=== PATIENT | female | born 1990 | race Caucasian/White ===

== ENCOUNTER 2024-11-04 11:46 | Outpatient (CLI) | payer BC ==
[~2024-11-04 11:46] MED LIST: AMOX-102 PO; LIDO20SO16 PO
[2024-11-04 13:06] LABS: MEAN PLATELET VOLUME 8.6 FL (7.4-10.4); RED CELL DISTRIBUTION WIDTH 13.2 % (11.5-14.5)
[2024-11-04 14:10] LABS: LEUKOCYTE ESTERASE ,URINE NEGATIVE (Neg); NITRITES, URINE NEGATIVE (Neg); OCCULT BLOOD,URINE NEGATIVE (Neg)
[2024-11-04 14:22] LABS: UA COLLECTION TYPE NON-SPECIFIED
[2024-11-04 15:04] LABS: URINE AMPHETAMINE SCREEN NEGATIVE (Neg); URINE BARBITUATE SCREEN NEGATIVE (Neg); URINE BENZODIAZEPINES SCREEN NEGATIVE (Neg); URINE CANNABINOID SCREEN NEGATIVE (Neg); URINE COCAINE SCREEN NEGATIVE (Neg); URINE METHADONE SCREEN NEGATIVE (Neg); URINE OPIATE SCREEN NEGATIVE (Neg); URINE PHENCYCLIDINE SCREEN NEGATIVE (Neg)
[2024-11-07 05:15] LABS: HBSAG SCREEN Negative (Negative); HEPATITIS C VIRUS ANTIBODY Non Reactive (Non Reactive)
== END 2024-11-04 23:59 | disposition home or self-care (01) ==
LOC: LAB 11:46
PROVIDERS: ATTEND Specialist
DX: Z34.01 Encounter for supervision of normal first pregnancy, first trimester (principal); Z3A.00 Weeks of gestation of pregnancy not specified
CPT/HCPCS: 36415; 80305; 81003; 83036; 85025; 86762; 86780; 86803; 86885; 86900; 86901; 87088; 87340; 87389; 87491; 87522

== ENCOUNTER 2025-02-14 15:59 | Outpatient (CLI) | payer BC ==
--- NOTE | 2025-02-14 19:01 | RADIOLOGY REPORT ---
EXAM: US US OB HISTORY: anatomy scan COMPARISON: None TECHNIQUE: Transabdominal and endovaginal real time correa scale, color, and doppler evaluation. Permanent images are maintained in the patient record. FINDINGS: GA by previous US/LMP: 27 weeks, 6 days YUSUF by previous US/LMP: 05/10/25 US GESTATIONAL AGE: 28 weeks, 5 days US YUSUF: 05/04/25 ESTIMATED WEIGHT: 1262 g. 2 lb, 13 oz HEART RATE: 149 bpm BPD: 7..13 cm, 28 weeks 4 days, 63.6% HC: 26.26 cm, 28 weeks 4 days, 41.8% AC: 24.11 cm, 28 weeks 3 days, 59% FL: 5.51 cm, 29 weeks 0days, 71% HC/AC: 1.09 ANATOMY: Normal head, 4 chamber heart, face, spine, stomach, kidneys, cord insertion, bladder, extremities POSITION: Vertex PLACENTA: Anterior Amniotic fluid index measures 14.9 cm, normal Cervical length measures 4.43 cm IMPRESSION: 1. Single viable gestation with normal cardiac heart rate.
== END 2025-02-14 23:59 | disposition home or self-care (01) ==
LOC: LAB 15:59
PROVIDERS: ATTEND Specialist
DX: Z36.86 Encounter for antenatal screening for cervical length (principal); Z36.0 Encounter for antenatal screening for chromosomal anomalies; Z3A.28 28 weeks gestation of pregnancy
CPT/HCPCS: 76805

== ENCOUNTER → 2025-03-01 | Outpatient (CLI) | payer BC ==
[2025-03-01 08:24] LABS: MEAN PLATELET VOLUME 8.2 FL (7.4-10.4); RED CELL DISTRIBUTION WIDTH 12.9 % (11.5-14.5)
== END | disposition home or self-care (01) ==
LOC: LAB 07:16
PROVIDERS: ATTEND Specialist
DX: Z34.01 Encounter for supervision of normal first pregnancy, first trimester (principal); Z3A.00 Weeks of gestation of pregnancy not specified
CPT/HCPCS: 36415; 82950; 85025